=== PATIENT | female | born 1975 | race Asian ===

== ENCOUNTER 2020-12-27 11:28 | Outpatient (REF) | payer OTHER, SELFPAY ==
[2020-12-27 13:54] LABS: Hematocrit 42.3 % (37-47); Hemoglobin 14.1 g/dl (12.0-16.0)
[2020-12-27 14:16] LABS: Alanine Aminotransferase 36 U/L (0-31); Albumin Level 3.9 g/dL (3.5-5.0); Alkaline Phosphatase 80 U/L (39-117); Anion Gap 11 (12-20); Aspartate Amino Transferase 27 U/L (5-31); Bilirubin Total 0.5 mg/dL (0.0-1.0); Blood Urea Nitrogen 12 mg/dL (9-16); Calcium 8.6 mg/dL (8.4-10.2); Carbon Dioxide 26 mmol/L (22-29); Chloride 106 mmol/L (96-108); Cholesterol 234 mg/dL; Estimated Glomerular Filt Rate > 60; Glucose Fasting 87 mg/dL (60-99); HDL Cholesterol 59 mg/dL; LDL Cholesterol Calculated 156 mg/dl; Potassium 4.1 mmol/L (3.3-5.1); Sodium 139 mmol/L (135-145); Triglycerides 98 mg/dL
== END 2020-12-27 11:29 | disposition home or self-care (01) ==
LOC: HO.HMGCLDS 11:28
PROVIDERS: PCP Internal Medicine; Visit Provider Internal Medicine
DX: E55.9 Vitamin D deficiency, unspecified (principal); E78.9 Disorder of lipoprotein metabolism, unspecified; Z00.01 Encounter for general adult medical examination with abnormal findings
CPT/HCPCS: 36415; 80053; 80061; 85014; 85018

== ENCOUNTER 2021-03-16 10:02 | Outpatient (REF) | payer OTHER, SELFPAY ==
--- NOTE | ~2021-03-16 | MM_ITS ---
EXAMINATION: MM SCREENING DIGITAL BREAST TOMOSYNTHESIS, BILATERAL CLINICAL INFORMATION: Screening. Asymptomatic. The lifetime risk of breast cancer based on the Tyrer-Cuzick Model is 7.0%. COMPARISON: Mammography: January 12, 2019 and studies dating back to August 01, 2015 TECHNIQUE: Digital breast tomosynthesis is performed in both the craniocaudal and mediolateral oblique views along with computer-aided detection (CAD). Synthesized 2D images are generated from the tomosynthesis. Bilateral exaggerated craniocaudal views performed. FINDINGS: The breasts are extremely dense, which lowers the sensitivity of mammography (ACR BI-RADS breast composition Category d). There are no significant masses, abnormal calcifications, or other abnormalities. MM/MM tomosynthesis screening BI IMPRESSION: There are no significant changes from prior study. ASSESSMENT: BI-RADS 1: Negative RECOMMENDATION: Routine annual mammography screening. This patient's information was entered into a reminder system with a target due date for their next mammogram.
== END 2021-03-16 10:03 | disposition home or self-care (01) ==
LOC: HO.MAMMO 10:02
PROVIDERS: Visit Provider Internal Medicine
DX: Z12.31 Encounter for screening mammogram for malignant neoplasm of breast (principal)
CPT/HCPCS: 77063; 77067

== ENCOUNTER 2022-07-04 11:10 | Outpatient (REF) | payer OTHER, SELFPAY ==
--- NOTE | ~2022-07-04 | MM_ITS ---
EXAMINATION: MM SCREENING DIGITAL BREAST TOMOSYNTHESIS, BILATERAL CLINICAL INFORMATION: Screening. Asymptomatic. The lifetime risk of breast cancer based on the Tyrer-Cuzick Model is 6%. COMPARISON: Mammography: March 16, 2021 and studies dating back to April 16, 2016 TECHNIQUE: Digital breast tomosynthesis is performed in both the craniocaudal and mediolateral oblique views along with computer-aided detection (CAD). Synthesized 2D images are generated from the tomosynthesis. FINDINGS: The breasts are extremely dense, which lowers the sensitivity of mammography (ACR BI-RADS breast composition Category d). There are no new significant masses, abnormal calcifications, or other abnormalities. MM/MM tomosynthesis screening BI IMPRESSION: No significant changes from prior exam. ASSESSMENT: BI-RADS 1: Negative RECOMMENDATION: Routine annual mammography screening. This patient's information was entered into a reminder system with a target due date for their next mammogram.
== END 2022-07-04 11:11 | disposition home or self-care (01) ==
LOC: HO.MAMMO 11:10
PROVIDERS: Visit Provider Internal Medicine
DX: Z12.31 Encounter for screening mammogram for malignant neoplasm of breast (principal)
CPT/HCPCS: 77063; 77067

== ENCOUNTER 2022-09-12 10:31 | Outpatient (REF) | payer OTHER, SELFPAY ==
[2022-09-13 09:28] LABS: HPV mRNA E6/E7 rflx Not Detected (Not Detected)
== END 2022-09-12 10:32 | disposition home or self-care (01) ==
LOC: HO.LNP 10:31
PROVIDERS: PCP Internal Medicine; Visit Provider Advanced Practice Midwife
DX: Z01.419 Encounter for gynecological examination (general) (routine) without abnormal findings (principal); Z11.51 Encounter for screening for human papillomavirus (HPV); Z97.5 Presence of (intrauterine) contraceptive device
CPT/HCPCS: 87624; 88142

== ENCOUNTER 2022-09-12 12:23 | Outpatient (REF) | payer OTHER, SELFPAY ==
[2022-09-12 13:50] LABS: MANUAL DIFF FLAG NO
[2022-09-12 13:57] LABS: Basophils Absolute Auto 0.1 X10*3/uL (0.0-0.2); Basophils Percent Auto 1.2 % (0-2); Eosinophils Absolute Auto 0.1 X10*3/uL (0.0-0.4); Eosinophils Percent Auto 1.6 % (0-4); Hematocrit 44.8 % (37.0-47.0); Hemoglobin 14.8 g/dl (12.0-16.0); Imm Gran Abs Auto 0.01 X10*3/uL (0.00-0.03); Imm Gran Pct Auto 0.2 % (0.0-0.4); Lymphocytes Absolute Auto 1.9 X10*3/uL (1.2-4.9); Lymphocytes Percent Auto 38.1 % (20-40); Mean Corpuscular Hemoglobin 26.7 pg (27.0-33.0); Mean Corpuscular Volume 80.9 fL (80.0-98.0); Mean Platelet Volume 11.4 fL (9.4-12.3); Monocytes Absolute Auto 0.3 X10*3/uL (0.1-1.2); Monocytes Percent Auto 6.1 % (2-11); Neutrophils Absolute Auto 2.7 x10*3/uL (2.0-8.3); Neutrophils Percent Auto 52.8 % (45-73); Platelet Count 190 X10*3/uL (160-400); Red Blood Count 5.54 X10*6/uL (4.20-5.50); Red Cell Distribution Width 12.9 % (11.0-16.0); White Blood Count 5.1 X10*3/uL (4.8-10.8)
[2022-09-12 15:19] LABS: Alanine Aminotransferase 45 U/L (0-31); Albumin Level 4.4 g/dL (3.5-5.0); Alkaline Phosphatase 94 U/L (39-117); Anion Gap 11 (12-20); Aspartate Amino Transferase 24 U/L (5-31); Bilirubin Total 0.7 mg/dL (0.0-1.0); Blood Urea Nitrogen 13 mg/dL (9-16); Calcium 9.6 mg/dL (8.4-10.2); Carbon Dioxide 28 mmol/L (22-29); Chloride 106 mmol/L (96-108); Cholesterol 217 mg/dL; Estimated Glomerular Filt Rate > 60; Glucose Fasting 86 mg/dL (60-99); HDL Cholesterol 64 mg/dL; LDL Cholesterol Calculated 130 mg/dl; Potassium 4.3 mmol/L (3.3-5.1); Sodium 141 mmol/L (135-145); TSH reflex Free T4 2.83 uIU/mL (0.32-4.0); Total Protein 7.4 g/dL (6.5-8.0); Triglycerides 117 mg/dL
== END 2022-09-12 12:24 | disposition home or self-care (01) ==
LOC: HO.HMGCLDS 12:23
PROVIDERS: PCP Internal Medicine; Visit Provider Internal Medicine
DX: Z00.01 Encounter for general adult medical examination with abnormal findings (principal); E78.9 Disorder of lipoprotein metabolism, unspecified; E07.89 Other specified disorders of thyroid
CPT/HCPCS: 36415; 80053; 80061; 84443; 85025

== ENCOUNTER 2023-06-28 08:18 | Outpatient (REF) | payer OTHER, SELFPAY ==
--- NOTE | ~2023-06-28 | XR_ITS ---
EXAMINATION: XR KNEE, RIGHT CLINICAL INFORMATION: Right knee pain COMPARISON: None available. TECHNIQUE: Four views of the right knee. FINDINGS: There is no evidence of acute fracture or dislocation of the right knee. The right knee joint spaces are maintained. There is minimal marginal spurring seen involving the patellofemoral joint and medial joint space compartment. No significant effusion is appreciated. XR/XR knee RT 4V IMPRESSION: Mild degenerative change of the right knee patellofemoral joint and medial joint space compartment.
[2023-06-28 13:09] LABS: Alanine Aminotransferase 34 U/L (0-31); Alkaline Phosphatase 91 U/L (39-117); Aspartate Amino Transferase 21 U/L (5-31); Bilirubin Direct 0.1 mg/dL (0.0-0.5); Bilirubin Total 0.6 mg/dL (0.0-1.0); Cholesterol 263 mg/dL (<200); HDL Cholesterol 65 mg/dL (>40); LDL Cholesterol Calculated 163 mg/dL (<100); Total Protein 7.3 g/dL (6.5-8.0); Triglycerides 176 mg/dL (<150)
== END 2023-06-28 08:19 | disposition home or self-care (01) ==
LOC: HO.HMGCLDS 08:18
PROVIDERS: PCP Internal Medicine; Visit Provider Internal Medicine
DX: M25.561 Pain in right knee (principal); E78.9 Disorder of lipoprotein metabolism, unspecified
CPT/HCPCS: 36415; 73564; 80061; 80076

== ENCOUNTER → 2023-07-30 12:15 | Outpatient (BNV) | payer OTHER, SELFPAY | PROVIDERS: PCP Internal Medicine; Visit Provider Radiology Diagnostic Radiology | DX: Z12.31 Encounter for screening mammogram for malignant neoplasm of breast (principal) | CPT/HCPCS: 77063; 77067 ==

== ENCOUNTER 2023-07-30 12:20 | Outpatient (REF) | payer OTHER, SELFPAY | END 2023-07-30 12:21 | disposition home or self-care (01) | LOC: HO.MAMMO 12:20 | PROVIDERS: PCP Internal Medicine; Visit Provider Internal Medicine | DX: Z12.31 Encounter for screening mammogram for malignant neoplasm of breast (principal) | CPT/HCPCS: 77063; 77067 ==

== ENCOUNTER 2023-09-24 11:01 | Outpatient (AMB) | payer OTHER, SELFPAY ==
[2023-09-24 11:02] VITALS: BP 124/70; BMI 21.8
--- NOTE | 2023-09-24 11:02 | MHC.OFFVIS ---
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 It was inserted per the records about 2016. She is happy with it and not getting her. She is considering have it removed removed sometime after January. She is not very sexually active anymore because her is on medications which affect his ability to have sex so she is not as worried art all about anymore. She does not want to have it removed before January because she will be having her arm monthly fast in December and if she gets her. She cannot participate in Ramadan with everyone else. She is wondering about when menopause happens her mother she thinks went through menopause around age 46 of 46 and she thinks her older sister went through menopause at age 38. She does get hot flashes sometimes. She believes she had her mammogram just a couple of months ago and everything was fine and everything is fine in her health in general too. [facility] Medical History Vitamin D deficiency Lipid disorder Surgical History History of tooth extraction Family History Father Asthma Mother HTN (hypertension) Sister Mental health disorder Social History Housing: House Alcohol intake: never Patient Tobacco Use Status: Never used Tobacco e-Cigarette/Vaping Use: Never Used Second Hand Smoke Exposure: No Current occupational status: unemployed Current occupational exposures/hazards: No Cognitive needs: No Hearing needs: No Vision needs: No Female Reproductive History Menstrual Age of Menarche: 14 control method: progestin IUCD Total pregnancies: 3 Full term: 3 Number of Living Children: 3 Date of last pap smear: 09/12/22 (negative) Date of Mammogram: 07/30/23 Physical Exam Vital Signs: Last Vital Signs BP 124/70 09/24/23 11:02 BMI result Body Mass Index 21.8 Const General: healthy appearing, comfortable, no acute distress, well developed and alert Nutritional Appearance: average body habitus Orientation/consciousness: patient oriented x3 Limitations: no limitations HEENT Head: Yes normocephalic Neck Neck: Yes normal visual inspection Chest Chest palpation & inspection: normal inspection of the chest Breast/axilla inspection: normal inspection of the breasts and normal inspection of the axillae Breast/axilla palpation: normal palpation of the breasts and normal palpation of the axillae Resp Effort & Inspection: normal respiratory effort GI Inspection: Yes normal to inspection, No Abdominal wall edema and No distended Palpation (GI): Soft to palpation and nontender Other: External speculum exam within normal limits vagina pink moist cervix multiparous with Mirena strings visible. Cervix mobile nontender uterus midposition mobile nontender good tone with Kegel. Bharati menopausal changes evident General: Yes bladder normal to palpation External Female Exam: normal external appearance and normal appearance of the urethra Speculum Exam - Vagina: normal appearance of the vagina, normal palpation and normal vaginal discharge Speculum Exam - Cervix: normal appearance of the cervix, normal palpation and nontender Bimanual exam- vagina & uterus: normal bimanual exam, normal palpation, uterine size normal, bladder normal to palpation, consistency normal, normal palpation, uterine mobility normal, uterine shape normal, No Cervical tenderness present, non-tender and no cervical motion tenderness Bimanual Exam- Adnexa, other: normal adnexae, no masses, normal and No adnexal tenderness Neuro General: patient oriented x3 Assessment & Plan Assessment & Plan (1) Presence of 52 mg levonorgestrel-releasing intrauterine device (IUD): Code(s): Z97.5 - Presence of (intrauterine) contraceptive device (2) Encounter for routine gynecological examination: Code(s): Z01.419 - Encounter for gynecological examination (general) (routine) without abnormal findings (3) Cervical cancer screening: Comment: Previous Pap negative in 2017; Pap done 09/12/2022= neg, neg HPV. Code(s): Z12.4 - Encounter for screening for malignant neoplasm of cervix (4) Perimenopause: Code(s): N95.1 - Menopausal and female climacteric states Plan -----Discussed in this visit the following: healthy balanced diet, regular and consistent exercise, getting recommended health screens, doing the best she can for her particular health concerns, kegel exercises, pap smear screening and followup recommendations, mammography screening and SBE, normal changes in cycles in her life stage--- .---Discussed normal changes that happen premenapausally, perimenapausally, and postmenopausally, and ways to handle them. Discussed the normal variation, and the range of experiences that women experience. Discussed nutrition, health, need for exercise, both weight-bearing and aerobic. Also discussed the normal changes that happen with vaginal mucosal thinning and sensitivity, and simple more natural ways of handling these challenges. Reviewed the changing length of time that the Mirena can be left in and it can be left in for up to 8 years currently if it is not causing her any difficulty at all and if she is happy with the amenorrhea side effect of it. It is up to her when she would choose to have it removed but I did review the risk of non intended at her age and there is no way to really guarantee when she is through menopause completely while having the Mirena in. She is feeling less worried about it. RTC for next annual or Mirena removal whenever she chooses. Definitely did reminder that condoms can be helpful tool if there is any doubt whatsoever Coding Level of Care Code Est Pt Prev Care 40-64y(42160) Diagnoses Presence of 52 mg levonorgestrel-releasing intrauterine device (IUD) Z97.5 Encounter for routine gynecological examination Z01.419 Cervical cancer screening Z12.4 Perimenopause N95.1
== END 2023-09-24 12:07 | disposition home or self-care (01) ==
LOC: HO.HWSM 11:01
PROVIDERS: PCP Internal Medicine; Visit Provider Advanced Practice Midwife
DX: Z01.419 Encounter for gynecological examination (general) (routine) without abnormal findings (principal); N95.1 Menopausal and female climacteric states; Z97.5 Presence of (intrauterine) contraceptive device
CPT/HCPCS: 99396

== ENCOUNTER → 2023-09-24 11:01 | Outpatient (BNVA) | payer OTHER, SELFPAY | PROVIDERS: PCP Internal Medicine; Visit Provider Advanced Practice Midwife | DX: Z01.419 Encounter for gynecological examination (general) (routine) without abnormal findings (principal); Z12.4 Encounter for screening for malignant neoplasm of cervix; N95.1 Menopausal and female climacteric states; Z97.5 Presence of (intrauterine) contraceptive device | CPT/HCPCS: 99396 ==

== ENCOUNTER 2024-01-29 14:02 | Outpatient (AMB) | payer OTHER, SELFPAY ==
[2024-01-29 14:06] VITALS: BP 110/64; PULSE 91; O2SAT 97; BMI 21.1
--- NOTE | 2024-01-29 14:06 | MHC.PC.OV ---
Vital Signs 01/29/24 14:06 Height 5 ft 4 in Weight 123 lb 2 oz BMI 21.1 BP 110/64 Blood Pressure Location Rt brachial Position Sitting Pulse 91 Pulse Source Pulse Oximeter Pulse Oximetry (%) 97 Oxygen Delivery Method Room Air Intake Visit Reasons: Overdue F/u~ Allergies No Known Drug Allergies Allergy (Unknown, Verified 01/29/24 14:07) unknown Medication List - Last Reconciled 01/29/24 by Tk Springer MD cholecalciferol (vitamin D3) 50 mcg PO DAILY 90 days levonorgestrel (Mirena) intrauterine simvastatin 10 mg PO DAILY 90 days Tobacco use date assessed: 01/29/24 Dental Screening Dental Screen Date: 01/29/24 Did you have a dental visit in the last 12 months?: Yes Did you have a dental problem in the last 6 months where you did not have access to dental care?: No Was dental information given to patient?: Patient has dentist HPI Overdue F/u~ HPI Details Patient is a 48-year-old female Patient had COVID infection last month followed by sinus congestion and thick nasal discharge She said that she is having irritated cough which starts suddenly There is no fever no chills no shortness a breath no chest pain On examination her chest is clear I am treating her with azithromycin and Tessalon Perles Patient was also advised to push fluids and add vitamin-C to her diet Last time seen was December of last year Her labs done in June of last year when her LDL came back at 163 At that time patient stopped taking her simvastatin 10 mg She is now taking medication regularly I have placed order for labs again Patient is to do them fasting Meanwhile continue vitamin-D supplement as well She is due for physical exam appointment we will book that [facility] Medical History Vitamin D deficiency Lipid disorder Surgical History History of tooth extraction Family History Father Asthma Mother HTN (hypertension) Sister Mental health disorder Social History Housing: House Alcohol intake: never Patient Tobacco Use Status: Never used Tobacco e-Cigarette/Vaping Use: Never Used Second Hand Smoke Exposure: No Current occupational status: unemployed Current occupational exposures/hazards: No Cognitive needs: No Hearing needs: No Vision needs: No Female Reproductive History Menstrual Age of Menarche: 14 Questionnaire Thrive Questionnaire Date Thrive assessed: 06/29/22 YVONNE-7 AMB Questionnaire YVONNE-7 Date YVONNE - 7 assessed: 06/29/22 Source: Developed by Drs. Maurice Hwang, Lurdes Olivera, Enoch Perry and colleagues, with an educational chico from [employer]. Review of Systems Const Denies chills and Denies fever(s) ENT Denies epistaxis Card Denies chest pain Resp Denies hemoptysis GI Denies diarrhea and Denies nausea Skin/Breast Denies rash Neuro Reports no additional complaints Psych Reports no additional complaints Endo Reports no additional complaints Physical exam (Primary Care) Tobacco/Smoking Status: Tobacco use Status Tobacco use date assessed 12/25/22 12/25/22 08:52 Patient Tobacco Use Status Never used Tobacco 12/25/22 08:52 e-Cigarette/Vaping Use Never Used 12/25/22 08:52 Thrive Assessment: Date of Thrive Assessment Date Thrive assessed 06/29/22 12/25/22 08:52 Const General: cooperative, comfortable and no acute distress Orientation/consciousness: patient oriented x3 HENMT Head: Yes normocephalic Eyes General: appearance normal, both eyes and all related structures Neck Neck: Yes supple Resp Effort & Inspection: normal respiratory effort, no cough and no stridor Cardio Rhythm: regular rhythm Heart sounds: S1 normal heart sound present and S2 normal heart sound present Skin General skin exam: turgor normal Neuro General: patient oriented x3, tone normal and moves all extremities Extrem Right lower extremity: no edema Left lower extremity: no edema Assessment and Plan Assessment & Plan (1) Lipid disorder: Code(s): E78.9 - Disorder of lipoprotein metabolism, unspecified (2) Vitamin D deficiency: Code(s): E55.9 - Vitamin D deficiency, unspecified (3) Acute sinusitis: Code(s): J01.90 - Acute sinusitis, unspecified Qualifiers: Sinusitis location: maxillary Recurrence: non-recurrent Qualified Code(s): J01.00 - Acute maxillary sinusitis, unspecified Plan Patient is a 48-year-old female Patient had COVID infection last month followed by sinus congestion and thick nasal discharge She said that she is having irritated cough which starts suddenly There is no fever no chills no shortness a breath no chest pain On examination her chest is clear I am treating her with azithromycin and Tessalon Perles Patient was also advised to push fluids and add vitamin-C to her diet Last time seen was December of last year Her labs done in June of last year when her LDL came back at 163 At that time patient stopped taking her simvastatin 10 mg She is now taking medication regularly I have placed order for labs again Patient is to do them fasting Meanwhile continue vitamin-D supplement as well She is due for physical exam appointment we will book that Orders: Orders Comprehensive [place]. Panel Fast Today E55.9 - Vitamin D deficiency, unspecified, E78.9 - Disorder of lipoprotein metabolism, unspecified Vitamin D 25-OH (D2 and D3) Today E55.9 - Vitamin D deficiency, unspecified Complete Blood Count Auto Diff Today E55.9 - Vitamin D deficiency, unspecified, E78.9 - Disorder of lipoprotein metabolism, unspecified Lipid Panel Today E55.9 - Vitamin D deficiency, unspecified, E78.9 - Disorder of lipoprotein metabolism, unspecified Medications: New azithromycin Take 2 tablets today then 1 daily 250 mg PO ONCE 5 days 6 tabs 0RF J06.9 - Acute upper respiratory infection, unspecified benzonatate 200 mg PO BID 10 days PRN 20 caps 0RF cough Coding Level of Care Code Est Pt Level 3 (39652) Diagnoses Lipid disorder E78.9 Vitamin D deficiency E55.9 Acute non-recurrent maxillary sinusitis J01.00 Sinusitis location: maxillary Recurrence: non-recurrent
== END 2024-01-29 14:55 | disposition home or self-care (01) ==
PROVIDERS: PCP Internal Medicine; Visit Provider Internal Medicine
DX: E78.9 Disorder of lipoprotein metabolism, unspecified (principal); E55.9 Vitamin D deficiency, unspecified; J01.00 Acute maxillary sinusitis, unspecified
CPT/HCPCS: 99213

== ENCOUNTER 2024-02-25 06:10 | Outpatient (REF) | payer OTHER, SELFPAY ==
[2024-02-25 10:31] LABS: MANUAL DIFF FLAG NO
[2024-02-25 10:49] LABS: Basophils Absolute Auto 0.1 X10*3/uL (0.0-0.2); Basophils Percent Auto 0.9 % (0-2); Eosinophils Absolute Auto 0.1 X10*3/uL (0.0-0.4); Eosinophils Percent Auto 2.1 % (0-4); Hematocrit 43.2 % (37.0-47.0); Hemoglobin 14.2 g/dl (12.0-16.0); Imm Gran Abs Auto 0.01 X10*3/uL (0.00-0.03); Imm Gran Pct Auto 0.2 % (0.0-0.4); Lymphocytes Absolute Auto 2.5 X10*3/uL (1.2-4.9); Lymphocytes Percent Auto 46.2 % (20-40); Mean Corpuscular HGB Conc 32.9 g/dl (31.0-35.0); Mean Corpuscular Hemoglobin 26.8 pg (27.0-33.0); Mean Corpuscular Volume 81.5 fL (80.0-98.0); Mean Platelet Volume 11.4 fL (9.4-12.3); Monocytes Absolute Auto 0.4 X10*3/uL (0.1-1.2); Monocytes Percent Auto 6.6 % (2-11); Neutrophils Absolute Auto 2.4 x10*3/uL (2.0-8.3); Platelet Count 183 X10*3/uL (160-400); Red Cell Distribution Width 13.3 % (11.0-16.0); White Blood Count 5.3 X10*3/uL (4.8-10.8)
[2024-02-25 11:42] LABS: Alanine Aminotransferase 43 U/L (0-31); Albumin Level 3.9 g/dL (3.5-5.0); Alkaline Phosphatase 80 U/L (39-117); Anion Gap 10 (12-20); Aspartate Amino Transferase 26 U/L (5-31); Bilirubin Total 0.5 mg/dL (0.0-1.0); Blood Urea Nitrogen 13 mg/dL (9-16); Calcium 9.4 mg/dL (8.4-10.2); Carbon Dioxide 27 mmol/L (22-29); Chloride 109 mmol/L (96-108); Cholesterol 175 mg/dL (<200); Estimated Glomerular Filt Rate > 60; Glucose Fasting 91 mg/dL (60-99); HDL Cholesterol 64 mg/dL (>40); LDL Cholesterol Calculated 94 mg/dL (<100); Potassium 4.3 mmol/L (3.3-5.1); Sodium 142 mmol/L (135-145); Total Protein 7.1 g/dL (6.5-8.0); Triglycerides 89 mg/dL (<150)
[2024-02-29 14:58] LABS: Vitamin D 25-OH, D2 <4 ng/mL; Vitamin D 25-OH, D3 19 ng/mL; Vitamin D 25-OH, Total 19 ng/mL (30-100)
== END 2024-02-25 06:11 | disposition home or self-care (01) ==
LOC: HO.HMGCLDS 06:10
PROVIDERS: PCP Internal Medicine; Visit Provider Internal Medicine
DX: E78.9 Disorder of lipoprotein metabolism, unspecified (principal); E55.9 Vitamin D deficiency, unspecified
CPT/HCPCS: 36415; 80053; 80061; 82306; 85025

== ENCOUNTER 2024-02-26 10:21 | Outpatient (AMB) | payer OTHER, SELFPAY ==
[2024-02-26 10:22] VITALS: BP 100/60; PULSE 97; O2SAT 92; BMI 21.3
--- NOTE | 2024-02-26 10:22 | A.OFFPC_ITS ---
Vital Signs 3 02/26/24 10:22 Height 5 ft 4 in Weight 124 lb 4 oz BMI 21.3 BP 100/60 Blood Pressure Location Rt brachial Position Sitting Pulse 97 Pulse Source Pulse Oximeter Pulse Oximetry (%) 92 Oxygen Delivery Method Room Air Intake Visit Reasons: PE per [place]- NEEDS PHQ9 + THRIVE Allergies No Known Drug Allergies Allergy (Unknown, Verified 02/26/24 10:22) unknown Medication List - Last Reconciled 02/26/24 by Tk Springer MD cholecalciferol (vitamin D3) 50 mcg PO DAILY 90 days levonorgestrel (Mirena) intrauterine simvastatin 10 mg PO DAILY 90 days Tobacco use date assessed: 02/26/24 Dental Screening Dental Screen Date: 02/26/24 Did you have a dental visit in the last 12 months?: Yes Did you have a dental problem in the last 6 months where you did not have access to dental care?: No Was dental information given to patient?: Patient has dentist HPI PE per [place]- NEEDS PHQ9 + THRIVE 2 HPI0 Details Patient is a 48-year-old female came in today for physical exam Patient is complaining of feeling left-sided swelling upper chest, on examination it is medial head of clavicle I have ordered x-ray for her to further evaluate, patient says that it has been there for past 1 year She is also complaining of feeling discomfort left side of chest off and on which feels like a gas pain. EKG done today shows normal sinus rhythm 60 8 beats per minute no acute findings. Patient does have a history of high cholesterol which is controlled with medication She had labs done recently reviewed with the patient She is complaining of feeling numbness in her both big toes, I wanted to do EMG nerve conduction study which patient declined I have sent B complex tablet she is to start taking that daily. Mammogram was July of last year OBGYN visit was September of this year She also declined to do colonoscopy. I have sent omeprazole 20 mg tablets patient is to start taking that once at night. We will book a telemedicine visit in 3 weeks to follow-up on that Follow-up 6 months labs are needed before visit Physical exam 1 year [facility] Medical History Vitamin D deficiency Lipid disorder Surgical History History of tooth extraction Family History Father Asthma Mother HTN (hypertension) Sister Mental health disorder Social History Housing: House Alcohol intake: never Patient Tobacco Use Status: Never used Tobacco e-Cigarette/Vaping Use: Never Used Second Hand Smoke Exposure: No Current occupational status: unemployed Current occupational exposures/hazards: No Cognitive needs: No Hearing needs: No Vision needs: No Female Reproductive History Menstrual Age of Menarche: 14 Questionnaire PHQ-9 Over the last 2 weeks, how often have you been bothered by any of the following problems? 1. Little interest or pleasure in doing things: not at all 2. Feeling down, depressed, or hopeless: not at all 3. Trouble falling or staying asleep, or sleeping too much: not at all 4. Feeling tired or having little energy: several days 5. Poor appetite or overeating: not at all 6. Feeling bad about yourself - or that you are a failure or have let yourself or your family down: not at all 7. Trouble concentrating on things, such as reading the newspaper or watching television: not at all 8. Moving or speaking so slowly that other people could have noticed. Or the opposite - being so fidgety or restless that you have been moving around a lot more than usual: not at all 9. Thoughts that you would be better off or of hurting yourself in some way: not at all Total score: 1 Depression Screening Interpretation: Negative Depression Screening Done: Yes 97639 - PHQ-9 Billing: Yes Source: Developed by Drs. Maurice Hwang, Lurdes Olivera, Enoch Perry and colleagues, with an educational chico from [employer]. Thrive Questionnaire Date Thrive assessed: 02/26/24 I am a: Patient What is your living situation today?: I have a steady place to live Within the past 12 months, did the food you bought not last and you didn't have the money to get more?: Never true Within the past 12 months, did you worry whether your food would run out before you got money to buy more?: Never true Do you have trouble paying for medicines?: No Do you have trouble getting transportation to medical appointments?: No Do you have trouble paying your heating and electricity bill?: No Do you have trouble taking care of your child, family member or friend?: No Do you have trouble with day-to-day activities such as bathing, preparing meals, shopping, managing finances, etc.?: No Are you currently unemployed and looking for a job?: No Are you interested in more education?: No Please select the resources that you would like help with: None Currently or been in a relationship where the following occur: no concerns reported THRIVE Score: 0 AUDIT C Alcohol Use Questionnaire (AUDIT-C) 1. How often do you have a drink containing alcohol?: Never 3. How often do you have six or more drinks on one occasion?: Never Total Score: 0 Score Reviewed/Action Taken: Yes YVONNE-7 AMB Questionnaire YVONNE-7 Date YVONNE - 7 assessed: 02/26/24 Feeling nervous, anxious, or on edge: 0 = Not at all Not being able to stop or control worryin = Not at all Worrying too much about different things: 0 = Not at all Trouble relaxin = Not at all Being so restless that it is hard to sit still: 0 = Not at all Becoming easily annoyed or irritable: 1 = Several days Feeling afraid as if something awful might happen: 0 = Not at all Total YVONNE-7 score (0-4 normal; 5-9 mild; 10-14 moderate; 15-21 severe): 1 Source: Developed by Drs. Maurice Hwang, Lurdes Olivera, Enoch Perry and colleagues, with an educational chico from [employer]. YVONNE-7 Assessment Billing YVONNE-7 Assessment Tool: YVONNE-7 Assessment 76842 Review of Systems Const Denies chills, Denies fever(s) and Denies headache(s) Eyes Denies blurry vision ENT Denies headache(s), Denies nasal discharge, Denies nasal obstruction, Denies odynophagia and Denies sinus pain Resp Denies cough and Denies hemoptysis GI Denies diarrhea, Denies odynophagia, Denies vomiting and Denies hematemesis Reports as per HPI Musc Denies abnormal gait Skin/Breast Reports as per HPI Neuro Denies Neuro-related abnormal movements, Denies Abnormal speech present, Denies abnormal gait and Denies headache(s) Psych Denies mood swings and Denies paranoia Endo Reports as per HPI Danny/Lymph Reports as per HPI Aller/Immun Reports as per HPI Physical exam (Primary Care) Vital Signs: Last Vital Signs Pulse 97 02/26/24 10:22 BP 100/60 02/26/24 10:22 Pulse Ox 92 02/26/24 10:22 Oxygen Delivery Method Room Air 02/26/24 10:22 BMI result Body Mass Index 21.3 Tobacco/Smoking Status: Tobacco use Status Tobacco use date assessed 02/26/24 02/26/24 10:28 Patient Tobacco Use Status Never used Tobacco 02/26/24 10:28 e-Cigarette/Vaping Use Never Used 02/26/24 10:28 PHQ-9: PHQ-9 Score PHQ-9: Total score 1 02/26/24 11:48 Depression Screening Interpretation: Negative Thrive Assessment: Date of Thrive Assessment Date Thrive assessed 02/26/24 02/26/24 10:59 Currently or been in a relationship where the following occur: no concerns reported Const General: cooperative, comfortable and no acute distress Orientation/consciousness: patient oriented x3 HENMT Head: Yes normocephalic and Yes atraumatic Eyes General: appearance normal, both eyes and all related structures Pupils: Equal, round and reactive pupils present EOM: EOMs intact bilaterally Neck Neck: Yes supple and No lymphadenopathy Thyroid: Thyroid normal Lymphatic: no lymphadenopathy noted Neck images: 2 1. More prominent than right side Resp Effort & Inspection: normal respiratory effort and able to speak in complete sentences Auscultation: clear to auscultation bilaterally Cardio Heart sounds: S1 normal heart sound present and S2 normal heart sound present GI Palpation (GI): Soft to palpation and nontender Auscultation: normal bowel sounds General: Yes no CVA tenderness Back/Spine/Pelvis Back: no CVA tenderness Skin General skin exam: elasticity normal and turgor normal Neuro General: patient oriented x3 and gait normal Cranial nerves: Yes Equal, round and reactive pupils present Speech: No Abnormal speech present Coordination: tandem gait normal and Romberg test negative Extrem General: Yes normal exam except as noted and No edema Office Procedures EKG [id number], Complete Assessment and Plan Assessment & Plan (1) Encounter for general adult medical examination with abnormal findings: Code(s): Z00.01 - Encounter for general adult medical examination with abnormal findings (2) Chest pain: Code(s): R07.9 - Chest pain, unspecified Qualifiers: Chest pain type: unspecified Qualified Code(s): R07.9 - Chest pain, unspecified (3) Clavicle pain: Code(s): M89.8X1 - Other specified disorders of bone, shoulder (4) Lipid disorder: Code(s): E78.9 - Disorder of lipoprotein metabolism, unspecified (5) Palpable thyroid: Code(s): E07.89 - Other specified disorders of thyroid (6) Paresthesia of both feet: Code(s): R20.2 - Paresthesia of skin Plan Patient is a 48-year-old female came in today for physical exam Patient is complaining of feeling left-sided swelling upper chest, on examination it is medial head of clavicle I have ordered x-ray for her to further evaluate, patient says that it has been there for past 1 year She is also complaining of feeling discomfort left side of chest off and on which feels like a gas pain. EKG done today shows normal sinus rhythm 60 8 beats per minute no acute findings. Patient does have a history of high cholesterol which is controlled with medication She had labs done recently reviewed with the patient She is complaining of feeling numbness in her both big toes, I wanted to do EMG nerve conduction study which patient declined I have sent B complex tablet she is to start taking that daily. Continued to have palpable thyroid, ultrasound was done to evaluate in the past TSH level is within normal limit Mammogram was July of last year OBGYN visit was September of this year She also declined to do colonoscopy. I have sent omeprazole 20 mg tablets patient is to start taking that once at night. We will book a telemedicine visit in 3 weeks to follow-up on that Follow-up 6 months labs are needed before visit Physical exam 1 year Orders: Orders 2 XR clavicle LT Today M89.8X1 - Other specified disorders of bone, shoulder AMB EKG-In Office Today R07.9 - Chest pain, unspecified Medications: New 2 omeprazole 20 mg PO DAILY 90 caps 1RF 90 days vit B complex 100 combo no.2 ER (Balanced B-100 Complex) 1 tab PO .qd 90 tabs 3RF 90 days Refilled 2 simvastatin 10 mg PO DAILY 90 tabs 0RF 90 days Coding Level of Care Code Est Pt Level 4 (69162) Est Pt Prev Care 40-64y(81238) Diagnoses Encounter for general adult medical examination with abnormal findings Z00.01 Chest pain, unspecified type R07.9 Chest pain type: unspecified Clavicle pain M89.8X1 Lipid disorder E78.9 Palpable thyroid E07.89 Paresthesia of both feet R20.2 CPT Codes EKG - CPT: 89984-[id number], Complete ([id number]) Additional Codes YVONNE-7 Assessment Billing - YVONNE-7 Assessment Tool: YVONNE-7 Assessment [id number] ([id number])
== END 2024-02-26 11:01 | disposition home or self-care (01) ==
PROVIDERS: PCP Internal Medicine; Visit Provider Internal Medicine
DX: Z00.01 Encounter for general adult medical examination with abnormal findings (principal); R07.9 Chest pain, unspecified; M89.8X1 Other specified disorders of bone, shoulder; E78.9 Disorder of lipoprotein metabolism, unspecified; E07.89 Other specified disorders of thyroid; R20.2 Paresthesia of skin
CPT/HCPCS: 93000; 99214; 99396

== ENCOUNTER 2024-02-26 11:03 | Outpatient (REF) | payer OTHER, SELFPAY ==
--- NOTE | ~2024-02-26 | XR_ITS ---
EXAMINATION: XR CLAVICLE, LEFT CLINICAL INFORMATION: Swelling COMPARISON: None available. TECHNIQUE: Two views of the left clavicle. FINDINGS: The clavicle is intact. The bones and soft tissues are normal. No fracture. Acromioclavicular joint alignment is anatomic. XR/XR clavicle LT IMPRESSION: Normal left clavicle.
== END 2024-02-26 11:04 | disposition home or self-care (01) ==
LOC: HO.HMGCX 11:03
PROVIDERS: PCP Internal Medicine; Visit Provider Internal Medicine
DX: M89.8X1 Other specified disorders of bone, shoulder (principal)
CPT/HCPCS: 73000

== ENCOUNTER 2024-03-26 08:14 | Outpatient (AMB) | payer OTHER, SELFPAY ==
--- NOTE | 2024-03-26 08:19 | A.OFFPC_ITS ---
Intake Visit Reasons: 4 week follow up Allergies No Known Drug Allergies Allergy (Unknown, Verified 03/26/24 08:19) unknown Medication List - Last Reconciled 03/26/24 by Tk Springer MD cholecalciferol (vitamin D3) 50 mcg PO DAILY 90 days levonorgestrel (Mirena) intrauterine omeprazole 20 mg PO DAILY 90 days simvastatin 10 mg PO DAILY 90 days vit B complex 100 combo no.2 ER (Balanced B-100 Complex) 1 tab PO .qd 90 days Tobacco use date assessed: 03/26/24 Dental Screening Dental Screen Date: 03/26/24 Did you have a dental visit in the last 12 months?: Yes Did you have a dental problem in the last 6 months where you did not have access to dental care?: No Was dental information given to patient?: Patient has dentist HPI 4 week follow up HPI Details Telemed visit to jovana from last visit Labs shows well controlled lipids continue med Vit D is still low, pt is taking supplement lab order placed to be done before next visit in 6 M Neck pain continue, flexeril sent for spasm, she may take one at night she was c/o of epigastric LUQ pain last visit EKG was done which didnt show any acute findings Omperpazple was started, she states she is feeling much better X ray of collar bone with WNL PFSH Medical History Vitamin D deficiency Lipid disorder Surgical History History of tooth extraction Family History Father Asthma Mother HTN (hypertension) Sister Mental health disorder Social History Housing: House Alcohol intake: never Patient Tobacco Use Status: Never used Tobacco e-Cigarette/Vaping Use: Never Used Second Hand Smoke Exposure: No Current occupational status: unemployed Current occupational exposures/hazards: No Cognitive needs: No Hearing needs: No Vision needs: No Female Reproductive History Menstrual Age of Menarche: 14 Questionnaire Thrive Questionnaire Date Thrive assessed: 02/26/24 YVONNE-7 AMB Questionnaire YVONNE-7 Date YVONNE - 7 assessed: 02/26/24 Source: Developed by Drs. Maurice Hwang, Lurdes Olivera, Enoch Perry and colleagues, with an educational chico from [employer]. Review of Systems Const Denies chills and Denies fever(s) ENT Denies epistaxis and Denies nasal discharge Card Denies chest pain Resp Denies chest congestion, Denies cough and Denies hemoptysis GI Denies diarrhea and Denies nausea Skin/Breast Denies rash Neuro Reports no additional complaints Psych Reports no additional complaints Endo Reports no additional complaints Physical exam (Primary Care) Tobacco/Smoking Status: Tobacco use Status Tobacco use date assessed 03/26/24 03/26/24 08:20 Patient Tobacco Use Status Never used Tobacco 03/26/24 08:20 e-Cigarette/Vaping Use Never Used 03/26/24 08:20 Thrive Assessment: Date of Thrive Assessment Date Thrive assessed 02/26/24 03/26/24 08:20 Telehealth Telehealth Telehealth Platform: [employer] Location of provider rendering services: practice address Location of patient: address on file Patient Identification confirmed using: Name, : Yes Telehealth method: video (attempted) Patient verbally consented to treatment: Yes Patient verbally consented to billing insurance company: Yes Patient informed of any privacy concerns related to visit: Yes Assessment and Plan Assessment & Plan (1) Lipid disorder: Code(s): E78.9 - Disorder of lipoprotein metabolism, unspecified (2) Vitamin D deficiency: Code(s): E55.9 - Vitamin D deficiency, unspecified (3) Paresthesia of both feet: Code(s): R20.2 - Paresthesia of skin (4) Acid reflux: Code(s): K21.9 - Gastro-esophageal reflux disease without esophagitis Qualifiers: Esophagitis presence: without esophagitis Qualified Code(s): K21.9 - Gastro-esophageal reflux disease without esophagitis (5) Cervicalgia: Code(s): M54.2 - Cervicalgia Plan Telemed visit to jovana from last visit Labs shows well controlled lipids continue med Vit D is still low, pt is taking supplement lab order placed to be done before next visit in 6 M Neck pain continue, flexeril sent for spasm, she may take one at night she was c/o of epigastric LUQ pain last visit EKG was done which didnt show any acute findings Omperpazple was started, she states she is feeling much better X ray of collar bone with WNL proper foot martinez is recommeded for foot pain 30 min spent in care of this patient Orders: Orders Lipid Panel 5 Months E55.9 - Vitamin D deficiency, unspecified, E78.9 - Disorder of lipoprotein metabolism, unspecified, K21.9 - Gastro-esophageal reflux disease without esophagitis, M54.2 - Cervicalgia, R20.2 - Paresthesia of skin Comprehensive [place]. Panel Fast 5 Months E55.9 - Vitamin D deficiency, unspecified, E78.9 - Disorder of lipoprotein metabolism, unspecified, K21.9 - Gastro-esophageal reflux disease without esophagitis, M54.2 - Cervicalgia, R20.2 - Paresthesia of skin Complete Blood Count Auto Diff 5 Months E55.9 - Vitamin D deficiency, unspecified, E78.9 - Disorder of lipoprotein metabolism, unspecified, K21.9 - Gastro-esophageal reflux disease without esophagitis, M54.2 - Cervicalgia, R20.2 - Paresthesia of skin Vitamin D 25-OH (D2 and D3) 5 Months E55.9 - Vitamin D deficiency, unspecified, E78.9 - Disorder of lipoprotein metabolism, unspecified, K21.9 - Gastro- esophageal reflux disease without esophagitis, M54.2 - Cervicalgia, R20.2 - Paresthesia of skin Vitamin B12 5 Months E55.9 - Vitamin D deficiency, unspecified, E78.9 - Disorder of lipoprotein metabolism, unspecified, K21.9 - Gastro-esophageal reflux disease without esophagitis, M54.2 - Cervicalgia, R20.2 - Paresthesia of skin Medications: New cyclobenzaprine 5 mg PO BEDTIME 30 days 30 tabs 0RF Coding Level of Care Code Tele Est Pt Level 4 (59054) Diagnoses Lipid disorder E78.9 Vitamin D deficiency E55.9 Paresthesia of both feet R20.2 Gastroesophageal reflux disease without esophagitis K21.9 Esophagitis presence: without esophagitis Cervicalgia M54.2
== END 2024-03-26 10:39 | disposition home or self-care (01) ==
PROVIDERS: PCP Internal Medicine; Visit Provider Internal Medicine
DX: E78.9 Disorder of lipoprotein metabolism, unspecified (principal); E55.9 Vitamin D deficiency, unspecified; R20.2 Paresthesia of skin; K21.9 Gastro-esophageal reflux disease without esophagitis; M54.2 Cervicalgia
CPT/HCPCS: 99214

== ENCOUNTER 2024-07-31 12:23 | Outpatient (REF) | payer OTHER, SELFPAY ==
--- NOTE | ~2024-07-31 | MM_ITS ---
EXAMINATION: MM SCREENING DIGITAL BREAST TOMOSYNTHESIS, BILATERAL CLINICAL INFORMATION: Screening. Asymptomatic. COMPARISON: Mammography: Comparison is made with available priors TECHNIQUE: Digital breast mammography with tomosynthesis is performed in both the craniocaudal and mediolateral oblique views along with computer-aided detection (CAD). FINDINGS: The breasts are heterogeneously dense, which may obscure small masses (ACR BI-RADS breast composition Category c). There are no significant masses, abnormal calcifications, or other abnormalities. MM/MM tomosynthesis screening BI IMPRESSION: No mammographic evidence of malignancy. ASSESSMENT: BI-RADS BI-RADS 1 - Negative RECOMMENDATION: Routine annual mammography screening. 1 year F/U This examination should not preclude the clinical evaluation of a suspicious palpable abnormality. This patient's information was entered into a reminder system with a target due date for their next mammogram. Electronically signed by: Allison Oliver DO 08/11/2024 10:57 AM ARUNA
== END 2024-07-31 12:24 | disposition home or self-care (01) ==
LOC: HO.MAMMO 12:23
PROVIDERS: PCP Internal Medicine; Visit Provider Internal Medicine
DX: Z12.31 Encounter for screening mammogram for malignant neoplasm of breast (principal)
CPT/HCPCS: 77063; 77067

== ENCOUNTER → 2024-07-31 12:30 | Outpatient (BNV) | payer OTHER, SELFPAY | PROVIDERS: PCP Internal Medicine; Visit Provider Internal Medicine | DX: Z12.31 Encounter for screening mammogram for malignant neoplasm of breast (principal) | CPT/HCPCS: 77063; 77067 ==

== ENCOUNTER 2024-08-24 07:43 | Outpatient (REF) | payer OTHER, SELFPAY ==
[2024-08-24 10:17] LABS: MANUAL DIFF FLAG NO
[2024-08-24 10:32] LABS: Basophils Absolute Auto 0.1 X10*3/uL (0.0-0.2); Basophils Percent Auto 1.2 % (0-2); Eosinophils Absolute Auto 0.1 X10*3/uL (0.0-0.4); Eosinophils Percent Auto 2.2 % (0-4); Hematocrit 42.6 % (37.0-47.0); Hemoglobin 14.2 g/dl (12.0-16.0); Imm Gran Abs Auto 0.01 X10*3/uL (0.00-0.03); Imm Gran Pct Auto 0.2 % (0.0-0.4); Lymphocytes Absolute Auto 2.4 X10*3/uL (1.2-4.9); Lymphocytes Percent Auto 40.6 % (20-40); Mean Corpuscular HGB Conc 33.3 g/dl (31.0-35.0); Mean Corpuscular Hemoglobin 26.9 pg (27.0-33.0); Mean Corpuscular Volume 80.8 fL (80.0-98.0); Mean Platelet Volume 11.3 fL (9.4-12.3); Monocytes Absolute Auto 0.3 X10*3/uL (0.1-1.2); Monocytes Percent Auto 5.4 % (2-11); Neutrophils Absolute Auto 2.9 x10*3/uL (2.0-8.3); Neutrophils Percent Auto 50.4 % (45-73); Platelet Count 192 X10*3/uL (160-400); Red Blood Count 5.27 X10*6/uL (4.20-5.50); Red Cell Distribution Width 12.8 % (11.0-16.0); White Blood Count 5.8 X10*3/uL (4.8-10.8)
[2024-08-24 10:59] LABS: Alanine Aminotransferase 35 U/L (0-31); Alkaline Phosphatase 73 U/L (39-117); Anion Gap 11 (12-20); Aspartate Amino Transferase 25 U/L (5-31); Bilirubin Total 0.5 mg/dL (0.0-1.0); Blood Urea Nitrogen 14 mg/dL (9-16); Calcium 9.2 mg/dL (8.4-10.2); Carbon Dioxide 25 mmol/L (22-29); Chloride 108 mmol/L (96-108); Cholesterol 190 mg/dL (<200); Estimated Glomerular Filt Rate > 60; Glucose Fasting 102 mg/dL (60-99); HDL Cholesterol 66 mg/dL (>40); LDL Cholesterol Calculated 104 mg/dL (<100); Potassium 3.8 mmol/L (3.3-5.1); Sodium 140 mmol/L (135-145); Total Protein 7.3 g/dL (6.5-8.0); Triglycerides 100 mg/dL (<150)
[2024-08-24 11:14] LABS: Vitamin B12 395 pg/mL (200-900)
[2024-08-28 13:09] LABS: Vitamin D 25-OH, D2 <4 ng/mL; Vitamin D 25-OH, D3 28 ng/mL; Vitamin D 25-OH, Total 28 ng/mL (30-100)
== END 2024-08-24 07:44 | disposition home or self-care (01) ==
LOC: HO.HMGCLDS 07:43
PROVIDERS: PCP Internal Medicine; Visit Provider Internal Medicine
DX: E78.9 Disorder of lipoprotein metabolism, unspecified (principal); R20.2 Paresthesia of skin; E55.9 Vitamin D deficiency, unspecified; K21.9 Gastro-esophageal reflux disease without esophagitis; M54.2 Cervicalgia
CPT/HCPCS: 36415; 80053; 80061; 82306; 82607; 85025

== ENCOUNTER 2024-08-25 10:53 | Outpatient (AMB) | payer OTHER, SELFPAY ==
[2024-08-25 10:54] VITALS: BP 112/68; PULSE 97; O2SAT 98; BMI 22.0
--- NOTE | 2024-08-25 10:54 | MHC.PC.OV ---
Vital Signs 08/25/24 10:54 Height 5 ft 4 in Weight 128 lb 2 oz BMI 22.0 BP 112/68 Blood Pressure Location Rt brachial Position Sitting Pulse 97 Pulse Source Pulse Oximeter Pulse Oximetry (%) 98 Oxygen Delivery Method Room Air Intake Visit Reasons: 6 month follow up Allergies No Known Drug Allergies Allergy (Unknown, Verified 08/25/24 10:54) unknown Medication List - Last Reconciled 08/25/24 by Tk Springer MD cholecalciferol (vitamin D3) 50 mcg PO DAILY 90 days cyclobenzaprine 5 mg PO BEDTIME 30 days levonorgestrel (Mirena) intrauterine omeprazole 20 mg PO DAILY 90 days simvastatin 10 mg PO DAILY 90 days vit B complex 100 combo no.2 ER (Balanced B-100 Complex) 1 tab PO .qd 90 days Tobacco use date assessed: 08/25/24 Dental Screening Dental Screen Date: 08/25/24 Did you have a dental visit in the last 12 months?: Yes Did you have a dental problem in the last 6 months where you did not have access to dental care?: No Was dental information given to patient?: Patient has dentist HPI 6 month follow up HPI Details Assessment and Plan 49-year-old female with a history of pre-diabetes, hyperlipidemia, and Vitamin D deficiency presenting with concerns regarding facial dermatitis. And physical exam. During the visit, we addressed her current medication adherence and evaluated her dermatologic symptoms that have recently developed on the right cheek, characterized by itching and dryness. She has a history of rising lipid levels, for which she is currently on simvastatin, and a previously noted Vitamin D deficiency. She is also at risk for diabetes, with her last glucose level at 102 mg/dL. Her cholesterol management is noteworthy, showing improvement in LDL levels compared to the previous year. 1. Hyperlipidemia Continue current management with simvastatin due to improved LDL levels. Reinforce compliance with medication and dietary modifications. 2. Vitamin D Deficiency Patient should maintain a daily intake of Vitamin D supplements. Await pending results to adjust treatment if necessary. 3. Pre-Diabetes Continue monitoring fasting glucose levels. Discussed the continued risk of diabetes, and the importance of maintaining a healthy weight and diet. 4. Facial Dermatitis Prescribed a topical steroid to manage symptoms on the right cheek. Referred to a ecommerce analyst for further evaluation. Ensured patient understood the application process to prevent irritation. Diagnostic results - Labs: - Glucose: 102 mg/dL (Pre-diabetic range) - LDL: 104 mg/dL (Improved from 163 mg/dL last year) Problem List - Pre-diabetes - Hyperlipidemia - Vitamin D deficiency - Facial dermatitis Patient Instructions - Continue simvastatin as prescribed. - Maintain Vitamin D supplement regimen until further lab results. - Monitor blood glucose levels regularly as discussed. - Apply the prescribed topical steroid to affected areas on the face as directed. - Follow up with the ecommerce analyst for further evaluation of the dermatitis. - Next appointment scheduled for March 02 for physical examination. [facility] Medical History Vitamin D deficiency Lipid disorder Surgical History History of tooth extraction Family History Father Asthma Mother HTN (hypertension) Sister Mental health disorder Social History Housing: House Alcohol intake: never Patient Tobacco Use Status: Never used Tobacco e-Cigarette/Vaping Use: Never Used Second Hand Smoke Exposure: No service: No Current occupational status: unemployed Current occupational exposures/hazards: No Cognitive needs: No Hearing needs: No Vision needs: No Female Reproductive History Menstrual Age of Menarche: 14 Questionnaire PHQ-9 Over the last 2 weeks, how often have you been bothered by any of the following problems? 1. Little interest or pleasure in doing things: not at all 2. Feeling down, depressed, or hopeless: not at all 3. Trouble falling or staying asleep, or sleeping too much: not at all 4. Feeling tired or having little energy: not at all 5. Poor appetite or overeating: not at all 6. Feeling bad about yourself - or that you are a failure or have let yourself or your family down: not at all 7. Trouble concentrating on things, such as reading the newspaper or watching television: not at all 8. Moving or speaking so slowly that other people could have noticed. Or the opposite - being so fidgety or restless that you have been moving around a lot more than usual: not at all 9. Thoughts that you would be better off or of hurting yourself in some way: not at all Total score: 0 Depression Screening Interpretation: Negative Depression Screening Done: Yes 56037 - PHQ-9 Billing: Yes Source: Developed by Drs. Maurice Hwang, Lurdes Olivera, Enoch Perry and colleagues, with an educational chico from [employer]. Thrive Questionnaire Date Thrive assessed: 08/25/24 I am a: Patient What is your living situation today?: I have a steady place to live Within the past 12 months, did the food you bought not last and you didn't have the money to get more?: Never true Within the past 12 months, did you worry whether your food would run out before you got money to buy more?: Never true Do you have trouble paying for medicines?: No Do you have trouble getting transportation to medical appointments?: No Do you have trouble paying your heating and electricity bill?: No Do you have trouble taking care of your child, family member or friend?: No Do you have trouble with day-to-day activities such as bathing, preparing meals, shopping, managing finances, etc.?: No Are you currently unemployed and looking for a job?: I choose not to answer this question Are you interested in more education?: Yes Please select the resources that you would like help with: None Currently or been in a relationship where the following occur: I choose not to answer THRIVE Score: 0 AUDIT C Alcohol Use Questionnaire (AUDIT-C) 1. How often do you have a drink containing alcohol?: Never 3. How often do you have six or more drinks on one occasion?: Never Total Score: 0 Score Reviewed/Action Taken: Yes YVONNE-7 AMB Questionnaire YVONNE-7 Date YVONNE - 7 assessed: 08/25/24 Feeling nervous, anxious, or on edge: 0 = Not at all Not being able to stop or control worryin = Not at all Worrying too much about different things: 0 = Not at all Trouble relaxin = Not at all Being so restless that it is hard to sit still: 0 = Not at all Becoming easily annoyed or irritable: 2 = More than half the days Feeling afraid as if something awful might happen: 0 = Not at all Total YVONNE-7 score (0-4 normal; 5-9 mild; 10-14 moderate; 15-21 severe): 2 Source: Developed by Drs. Maurice Hwang, Lurdes Olivera, Enoch Perry and colleagues, with an educational chico from [employer]. YVONNE-7 Assessment Billing YVONNE-7 Assessment Tool: YVONNE-7 Assessment 39877 Review of Systems Const Denies chills and Denies fever(s) ENT Denies epistaxis and Denies nasal discharge Card Denies chest pain Resp Denies chest congestion, Denies cough and Denies hemoptysis GI Denies diarrhea and Denies nausea Skin/Breast Denies rash Neuro Reports no additional complaints Psych Reports no additional complaints Endo Reports no additional complaints Physical exam (Primary Care) Vital Signs: Last Vital Signs Pulse 97 08/25/24 10:54 BP 112/68 08/25/24 10:54 Pulse Ox 98 08/25/24 10:54 Oxygen Delivery Method Room Air 08/25/24 10:54 BMI result Body Mass Index 22.0 Tobacco/Smoking Status: Tobacco use Status Tobacco use date assessed 08/25/24 08/25/24 10:55 Patient Tobacco Use Status Never used Tobacco 08/25/24 10:55 e-Cigarette/Vaping Use Never Used 08/25/24 10:55 PHQ-9: PHQ-9 Score PHQ-9: Total score 0 08/25/24 16:21 Depression Screening Interpretation: Negative Thrive Assessment: Date of Thrive Assessment Date Thrive assessed 08/25/24 08/25/24 10:55 Currently or been in a relationship where the following occur: I choose not to answer Const General: cooperative, comfortable and no acute distress Orientation/consciousness: patient oriented x3 HENMT Head: Yes normocephalic Eyes General: appearance normal, both eyes and all related structures Neck Neck: Yes supple Resp Effort & Inspection: normal respiratory effort, no cough and no stridor Cardio Rhythm: regular rhythm Heart sounds: S1 normal heart sound present and S2 normal heart sound present Skin General skin exam: turgor normal Neuro General: patient oriented x3, tone normal and moves all extremities Extrem Right lower extremity: no edema Left lower extremity: no edema Coding Level of Care Code Est Pt Level 4 (15577) Complex EM visit Add On G2211 Diagnoses Facial rash R21 Lipid disorder E78.9 Vitamin D deficiency E55.9 Prediabetes R73.03 Additional Codes YVONNE-7 Assessment Billing - YVONNE-7 Assessment Tool: YVONNE-7 Assessment 11751 ([id number]) PHQ-9 - 17445 - PHQ-9 Billing: Yes ([id number]) Assessment & Plan Assessment & Plan (1) Facial rash: Code(s): R21 - Rash and other nonspecific skin eruption Category: Medical (2) Lipid disorder: Code(s): E78.9 - Disorder of lipoprotein metabolism, unspecified Category: Medical (3) Vitamin D deficiency: Code(s): E55.9 - Vitamin D deficiency, unspecified Category: Medical (4) Prediabetes: Code(s): R73.03 - Prediabetes Category: Medical Plan Assessment and Plan 49-year-old female with a history of pre-diabetes, hyperlipidemia, and Vitamin D deficiency presenting with concerns regarding facial dermatitis. And physical exam. During the visit, we addressed her current medication adherence and evaluated her dermatologic symptoms that have recently developed on the right cheek, characterized by itching and dryness. She has a history of rising lipid levels, for which she is currently on simvastatin, and a previously noted Vitamin D deficiency. She is also at risk for diabetes, with her last glucose level at 102 mg/dL. Her cholesterol management is noteworthy, showing improvement in LDL levels compared to the previous year. 1. Hyperlipidemia Continue current management with simvastatin due to improved LDL levels. Reinforce compliance with medication and dietary modifications. 2. Vitamin D Deficiency Patient should maintain a daily intake of Vitamin D supplements. Await pending results to adjust treatment if necessary. 3. Pre-Diabetes Continue monitoring fasting glucose levels. Discussed the continued risk of diabetes, and the importance of maintaining a healthy weight and diet. 4. Facial Dermatitis Prescribed a topical steroid to manage symptoms on the right cheek. Referred to a ecommerce analyst for further evaluation. Ensured patient understood the application process to prevent irritation. Diagnostic results - Labs: - Glucose: 102 mg/dL (Pre-diabetic range) - LDL: 104 mg/dL (Improved from 163 mg/dL last year) Problem List - Pre-diabetes - Hyperlipidemia - Vitamin D deficiency - Facial dermatitis Patient Instructions - Continue simvastatin as prescribed. - Maintain Vitamin D supplement regimen until further lab results. - Monitor blood glucose levels regularly as discussed. - Apply the prescribed topical steroid to affected areas on the face as directed. - Follow up with the ecommerce analyst for further evaluation of the dermatitis. - Next appointment scheduled for March 02 for physical examination. Orders: Orders Complete Blood Count Auto Diff 6 Months E55.9 - Vitamin D deficiency, unspecified, E78.9 - Disorder of lipoprotein metabolism, unspecified, R21 - Rash and other nonspecific skin eruption, Z00.01 - Encounter for general adult medical examination with abnormal findings Lipid Panel 6 Months E55.9 - Vitamin D deficiency, unspecified, E78.9 - Disorder of lipoprotein metabolism, unspecified, R21 - Rash and other nonspecific skin eruption, Z00.01 - Encounter for general adult medical examination with abnormal findings Vitamin D 25-OH (D2 and D3) 6 Months E55.9 - Vitamin D deficiency, unspecified, E78.9 - Disorder of lipoprotein metabolism, unspecified, R21 - Rash and other nonspecific skin eruption, Z00.01 - Encounter for general adult medical examination with abnormal findings Vitamin B12 6 Months E55.9 - Vitamin D deficiency, unspecified, E78.9 - Disorder of lipoprotein metabolism, unspecified, R21 - Rash and other nonspecific skin eruption, Z00.01 - Encounter for general adult medical examination with abnormal findings Comprehensive [place]. Panel Fast 6 Months E55.9 - Vitamin D deficiency, unspecified, E78.9 - Disorder of lipoprotein metabolism, unspecified, R21 - Rash and other nonspecific skin eruption, Z00.01 - Encounter for general adult medical examination with abnormal findings TSH reflex Free T4 6 Months E55.9 - Vitamin D deficiency, unspecified, E78.9 - Disorder of lipoprotein metabolism, unspecified, R21 - Rash and other nonspecific skin eruption, Z00.01 - Encounter for general adult medical examination with abnormal findings Referrals Dermatology Referral R21 - Rash and other nonspecific skin eruption Medications: New clobetasol 0.05% 1 appl topical BEDTIME 60 grams 0RF 15 days
== END 2024-08-25 13:28 | disposition home or self-care (01) ==
PROVIDERS: PCP Internal Medicine; Visit Provider Internal Medicine
DX: R21 Rash and other nonspecific skin eruption (principal); E78.9 Disorder of lipoprotein metabolism, unspecified; E55.9 Vitamin D deficiency, unspecified; R73.03 Prediabetes

== ENCOUNTER → 2024-08-25 10:53 | Outpatient (BNVA) | payer OTHER, SELFPAY | PROVIDERS: PCP Internal Medicine; Visit Provider Internal Medicine | DX: R21 Rash and other nonspecific skin eruption (principal); E78.9 Disorder of lipoprotein metabolism, unspecified; E55.9 Vitamin D deficiency, unspecified; R73.03 Prediabetes | CPT/HCPCS: 96127; 99212 ==

== ENCOUNTER 2024-11-04 11:26 | Outpatient (AMB) | payer OTHER, SELFPAY ==
--- NOTE | 2024-11-04 11:27 | MHC.OFFVIS ---
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 Required: No Abstracter Services: Abstracter Present Information Interpreted: clinical only Stunner And Shackler: Stunner And Shackler Present Allergies No Known Drug Allergies Allergy (Unknown, Verified 11/04/24 11:31) unknown Medication List - Last Reconciled 11/04/24 by Galilea Brumfield CNM cholecalciferol (vitamin D3) 50 mcg PO DAILY 90 days clobetasol 0.05% 1 appl topical BEDTIME 15 days cyclobenzaprine 5 mg PO BEDTIME 30 days levonorgestrel (Mirena) intrauterine omeprazole 20 mg PO DAILY 90 days simvastatin 10 mg PO DAILY 90 days vit B complex 100 combo no.2 ER (Balanced B-100 Complex) 1 tab PO .qd 90 days Post menopausal: Yes (2019) HPI 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 She is not getting hot flashes all that much. She is not sexually active anymore for little while. This was the case last year's well.. She used to get very heavy long periods and it caused anemia they would last from 7-10 days sometimes. She is very happy not to have her. And she had considered removing the IUD last year but Ramadan was coming up and she did not want to miss her fast if she had been bleeding and the same thing is true this year as it starts in a couple of weeks. She does not work outside the home but she lives in a household with 9 people and she cares for her [id number] who has had a stroke and is in need of a lot of care. She is watching her cholesterol and we will be getting blood work done for her primary care provider at some point in the near future. Today we talked about when the IUD would need to be removed and how long to keep it in. She thinks she would be happy to remove it is just so long as it was after Ramadan so she did not bleed during Ramadan. She thinks it was put in 2017 but we do not know the date. [facility] Medical History Vitamin D deficiency Lipid disorder Surgical History History of tooth extraction Family History Father Asthma Mother HTN (hypertension) Sister Mental health disorder Social History Housing: House Alcohol intake: never Patient Tobacco Use Status: Never used Tobacco e-Cigarette/Vaping Use: Never Used Second Hand Smoke Exposure: No service: No Current occupational status: unemployed Current occupational exposures/hazards: No Cognitive needs: No Hearing needs: No Vision needs: No Female Reproductive History Menstrual Age of Menarche: 14 control method: progestin IUCD Total pregnancies: 3 Full term: 3 Date of last pap smear: 09/12/22 (neg,2017,neg.) History of abnormal pap smear: No Date of Mammogram: 07/20/24 (negative) Physical Exam Vital Signs: Last Vital Signs BP 116/68 11/04/24 11:31 BMI result Body Mass Index 22.0 Const General: healthy appearing, comfortable, no acute distress, well developed and alert Nutritional Appearance: average body habitus Orientation/consciousness: patient oriented x3 Limitations: no limitations HEENT Head: Yes normocephalic Neck Neck: Yes normal visual inspection Chest Chest palpation & inspection: normal inspection of the chest Breast/axilla inspection: normal inspection of the breasts and normal inspection of the axillae Breast/axilla palpation: normal palpation of the breasts and normal palpation of the axillae Resp Effort & Inspection: normal respiratory effort GI Inspection: Yes normal to inspection, No Abdominal wall edema and No distended Palpation (GI): Soft to palpation and nontender Other: External exam within normal limits vagina is pink and moist cervix pink moist does not appear atrophic and neither does vagina there is a Mirena string extending from cervix. Uterus mobile small midposition nontender adnexa nontender nonenlarged good muscle tone. General: Yes bladder normal to palpation External Female Exam: normal external appearance and normal appearance of the urethra Speculum Exam - Vagina: normal appearance of the vagina, normal palpation and normal vaginal discharge Speculum Exam - Cervix: normal appearance of the cervix, normal palpation and nontender Bimanual exam- vagina & uterus: normal bimanual exam, normal palpation, uterine size normal, bladder normal to palpation, consistency normal, normal palpation, uterine mobility normal, uterine shape normal, No Cervical tenderness present, non-tender and no cervical motion tenderness Bimanual Exam- Adnexa, other: normal adnexae, no masses, normal and No adnexal tenderness Neuro General: patient oriented x3 Results Reviewed Results Reviewed: Name: Mavis Blum Age/Sex: 47/F Attending: Galilea Brumfield CNM : 1975 Submitted by: Galilea Brumfield CNM Copies to: MR #: [id number] Status: DEP REF Collected: 09/12/22 Location: [facility] Received: 09/12/22 Interpretation Satisfactory for evaluation. Negative for intraepithelial lesion or malignancy. HPV mRNA E6/E7: NOT DETECTED This assay detects E6/E7 viral messenger RNA (mRNA) from 14 high-risk HPV types (16, 18, 31, 33, 35, 39, 45, 51, 52, 56, 58, 59, 66, 68) HPV testing performed by [facility], [place], [place]. See reference laboratory portion of the EMR for entire report. Clinical Information LMP: Mirena no menses Previous PAP test: 2017, WNL Material Received ThinPrep-Cervical Electronically Signed By: Ghazal Branham 09/25/22 1038 The Pap Test is a screening procedure with the inherent possibility of both false negative and false positive results. Results should be interpreted in the context of historic and current clinical findings. Reliability of the Pap Test is enhanced by performing the test on a regular repetitive basis. Patient: Mavis Blum Age/Sex: 47/F MR#: [id number] Page 1 of 1 Patient: Mavis Blum MR#: [id number] : 1975 Acct:[id number] Age/Sex: 49 / F ADM Date: 07/31/24 Loc: HO.MAMMO Attending Dr: Tk Springer MD Ordering Physician: Tk Springer MD Results: 1Negative Date of Service: 07/31/24 Follow Up: 1 Year From Original Mammogram Procedure(s): MM tomosynthesis screening BI Accession Number(s): [id number] cc: Tk Springer MD~ EXAMINATION: MM SCREENING DIGITAL BREAST TOMOSYNTHESIS, BILATERAL CLINICAL INFORMATION: Screening. Asymptomatic. COMPARISON: Mammography: Comparison is made with available priors TECHNIQUE: Digital breast mammography with tomosynthesis is performed in both the craniocaudal and mediolateral oblique views along with computer-aided detection (CAD). FINDINGS: The breasts are heterogeneously dense, which may obscure small masses (ACR BI-RADS breast composition Category c). There are no significant masses, abnormal calcifications, or other abnormalities. MM/MM tomosynthesis screening BI IMPRESSION: No mammographic evidence of malignancy. ASSESSMENT: BI-RADS BI-RADS 1 - Negative RECOMMENDATION: Routine annual mammography screening. 1 year F/U This examination should not preclude the clinical evaluation of a suspicious palpable abnormality. This patient's information was entered into a reminder system with a target due date for their next mammogram. Electronically signed by: Allison Oliver DO 08/11/2024 10:57 AM EST Dictated By: Allison Oliver DO Signed By: <Electronically signed by Allison Oliver DO in OV> Assessment & Plan Assessment & Plan (1) Encounter for routine gynecological examination: Code(s): Z01.419 - Encounter for gynecological examination (general) (routine) without abnormal findings Category: Medical (2) Presence of 52 mg levonorgestrel-releasing intrauterine device (IUD): Comment: HIM researched EC W--. Mirena IU S inserted by 06/17/17.; consider removal /replacement June 2025, Code(s): Z97.5 - Presence of (intrauterine) contraceptive device Category: Social Hx (3) Cervical cancer screening: Comment: Previous Pap negative in 2016; Pap done 09/12/2022= neg, neg HPV.; next Pap due 2026. Code(s): Z12.4 - Encounter for screening for malignant neoplasm of cervix Category: Medical (4) Perimenopause: Comment: Consider getting FSH drawn even though Mirena is in to help determine if is in menopause physical features not consistent with menopause yet. 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 She is not getting hot flashes all that much. She is not sexually active anymore for little while. This was the case last year's well.. She used to get very heavy long periods and it caused anemia they would last from 7-10 days sometimes. She is very happy not to have her. And she had considered removing the IUD last year but Ramadan was coming up and she did not want to miss her fast if she had been bleeding and the same thing is true this year as it starts in a couple of weeks. She does not work outside the home but she lives in a household with 9 people and she cares for her [id number] who has had a stroke and is in need of a lot of care. She is watching her cholesterol and we will be getting blood work done for her primary care provider at some point in the near future. Today we talked about when the IUD would need to be removed and how long to keep it in. She thinks she would be happy to remove it is just so long as it was after Ramadan so she did not bleed during Ramadan. She thinks it was put in 2017 but we do not know the date. I offered the patient testing for STIs and infections and she did accept. Pap smear not due until 2026. EC W is now closed to provider's call placed to medical records/HIM and had them research visits with Dr. Bennett from 2017 the note was found documenting insertion of the Mirena IU S on 06/17/2017.. I reviewed that she does not not appear to be completely in menopause yet, and there is no way to really tell as sometimes getting the FSH level done while there is a hormone emitting IUD present may affect the results but I have ordered an FSH level that she can get done at any point this year and for now she could leave the IUD in until June of 2025 and if the FSH level is clearly in the menopausal range she could go ahead and schedule removal at her convenience perhaps in the fall. She did not need anything else she is up-to-date with her mammograms and she is getting her regular checkups with Dr. Springer. RTC 1 year. ------- Timeframe/Date Comment FSH level whenever it is convenient for her Mirena removal if in menopausal range, consider next If not in menopausal range we will need replacement of IUD RTC 1 year, Orders: Orders Follicle Stimulating Hormone Today N95.1 - Menopausal and female climacteric states, Z01.419 - Encounter for gynecological examination (general) (routine) without abnormal findings, Z12.4 - Encounter for screening for malignant neoplasm of cervix, Z97.5 - Presence of (intrauterine) contraceptive device Coding Level of Care Code Est Pt Prev Care 40-64y([id number]) Diagnoses Encounter for routine gynecological examination Z01.419 Presence of 52 mg levonorgestrel-releasing intrauterine device (IUD) Z97.5 Cervical cancer screening Z12.4 Perimenopause N95.1
[2024-11-04 11:31] VITALS: BP 116/68; BMI 22.0
== END 2024-11-04 12:59 | disposition home or self-care (01) ==
PROVIDERS: PCP Internal Medicine; Visit Provider Advanced Practice Midwife
DX: Z01.419 Encounter for gynecological examination (general) (routine) without abnormal findings (principal); N95.1 Menopausal and female climacteric states
CPT/HCPCS: 99396; 99459

== ENCOUNTER 2024-11-04 11:26 | Outpatient (REF) | payer OTHER, SELFPAY ==
[2024-11-05 03:26] LABS: CT PCR NOT DETECTED (Not Detect.); NG PCR NOT DETECTED (Not Detect.)
[2024-11-05 13:56] LABS: Bacterial Vaginosis PCR NEGATIVE (Negative); Candida Group PCR NOT DETECTED (Not Detect); Candida glab krusei PCR NOT DETECTED (Not Detect); Trichomonas vaginalis PCR NOT DETECTED (Not Detect)
== END 2024-11-04 11:27 | disposition home or self-care (01) ==
LOC: HO.LAB 11:26
PROVIDERS: PCP Internal Medicine; Visit Provider Advanced Practice Midwife
DX: Z01.419 Encounter for gynecological examination (general) (routine) without abnormal findings (principal); N89.8 Other specified noninflammatory disorders of vagina; Z97.5 Presence of (intrauterine) contraceptive device; N95.1 Menopausal and female climacteric states
CPT/HCPCS: 81515; 87491; 87591; 99396; 99459

== ENCOUNTER 2025-03-02 12:31 | Outpatient (AMB) | payer OTHER, SELFPAY ==
--- NOTE | 2025-03-02 12:34 | A.OFFPC_ITS ---
Vital Signs 03/02/25 12:35 Height 5 ft 4 in Weight 125 lb 6 oz BMI 21.5 BP 114/76 Blood Pressure Location Rt brachial Position Sitting Pulse 81 Pulse Source Pulse Oximeter Temp 98.7 F Temp Source Oral Pulse Oximetry (%) 98 Oxygen Delivery Method Room Air Intake Visit Reasons: PE PHQ-9 needed. Allergies No Known Drug Allergies Allergy (Unknown, Verified 03/02/25 12:35) unknown Medication List - Last Reconciled 03/02/25 by Tk Springer MD cholecalciferol (vitamin D3) 50 mcg PO DAILY 90 days levonorgestrel (Mirena) intrauterine omeprazole 20 mg PO DAILY 90 days simvastatin 10 mg PO DAILY 90 days vit B complex 100 combo no.2 ER (Balanced B-100 Complex) 1 tab PO .qd 90 days Tobacco use date assessed: 03/02/25 Dental Screening Dental Screen Date: 03/02/25 Did you have a dental visit in the last 12 months?: No Did you have a dental problem in the last 6 months where you did not have access to dental care?: No Was dental information given to patient?: Patient has dentist HPI PE PHQ-9 needed. HPI Details Physical exam appointment patient is a 49-year-old female Labs were supposed to be done before this visit but patient did not Medication list reviewed Taking omeprazole 20 mg for GERD Simvastatin 10 mg for lipid disorder And vitamin-D supplement BMI within normal limit - She has experienced foot pain due to a traumatic incident where she dropped a can of chickpeas on her foot. The pain was initially a blue bruise, but did not cause severe pain. - The patient reports shoulder pain, whi ch is suspected to be due to overuse. There is a history of arthritis in one shoulder, now suspected in both due to occurrence of similar pain. - Hyperlipidemia was noted with an LDL o f 104 during previous metabolic profiling. Medical History: - Vitamin D deficiency - Hyperlipidemia - History of trauma-induced foot pain - Shoulder arthritis and suspected overu se injury Health Maintenance - Up-to-date mammogram - Up-to-date OBGYN checkup - Liver enzymes stable and kidney functi ons intact - Fasting glucose noted to be 102 - Vitamin D measured at 28 Diagnostic results - Metabolic profile within normal limits - CBC normal, no anemia - Fasting sugar 102 - LDL 104 - Liver enzymes stable - Kidney functions intact Patient Instructions - Continue taking Vitamin D supplements. - Ensure blood tests are updated as requ ired. - Get a Cologuard test done. - Take omeprazole and avoid spicy foods to manage gastrointestinal symptoms. - Consider an ultrasound to investigate shoulder pain further. - Tetanus vaccine is due; remain mindful of the necessity if injuries occur. patient declined T dap today Review of Systems - General: No fever no chills - Neurological: No headaches no dizzin ess - Ear nose throat: No sore throat no hearing difficulty no ear pain - Cardiovascular: No syncope, no chest pain, no palpitations - Gastrointestinal: No nausea vomiting or diarrhea - Endocrine: No polyuria polydipsia no heat intolerance - Genitourinary: No dysuria - Skin: No new complaints Physical Exam General: Cooperative, healthy appearing, comfortable, no acute distress Orientation: Patient oriented x3 Head: Normal to inspection Ears: Within normal limit visually Nose: Normal external nose present Face and sinus: Normal facial exam Eyes: Appearance normal, extraocular movement intact pupils reactive Neck: Normal visual inspection and supple Respiratory: Normal respiratory effort and able to speak in complete sentences. Clear to auscultation, no stridor Cardiovascular: S1 and S2 RRR GI: Normal to inspection. Soft to palpation and nontender Skin: Turgor normal, no acute findings Neuro: Patient oriented x3, motor sensory intact, balance intact, tandem pass Extremities: Normal to inspection, ROM intact, pain both shoulders with extension, pain left foot between big toe and second toe PFSH Medical History Vitamin D deficiency Lipid disorder Surgical History History of tooth extraction Family History Father Asthma Mother HTN (hypertension) Sister Mental health disorder Social History Housing: House Alcohol intake: never Patient Tobacco Use Status: Never used Tobacco e-Cigarette/Vaping Use: Never Used Second Hand Smoke Exposure: No service: No Current occupational status: unemployed Current occupational exposures/hazards: No Cognitive needs: No Hearing needs: No Vision needs: No Female Reproductive History Menstrual Age of Menarche: 14 Questionnaire PHQ-9 Over the last 2 weeks, how often have you been bothered by any of the following problems? 1. Little interest or pleasure in doing things: not at all 2. Feeling down, depressed, or hopeless: not at all 3. Trouble falling or staying asleep, or sleeping too much: not at all 4. Feeling tired or having little energy: not at all 5. Poor appetite or overeating: not at all 6. Feeling bad about yourself - or that you are a failure or have let yourself or your family down: not at all 7. Trouble concentrating on things, such as reading the newspaper or watching television: not at all 8. Moving or speaking so slowly that other people could have noticed. Or the opposite - being so fidgety or restless that you have been moving around a lot more than usual: not at all 9. Thoughts that you would be better off or of hurting yourself in some way: not at all Total score: 0 Source: Developed by Drs. Maurice Hwang, Lurdes Olivera, Enoch Perry and colleagues, with an educational chico from [employer]. Thrive Questionnaire Date Thrive assessed: 08/23/24 I am a: Patient What is your living situation today?: I have a steady place to live Within the past 12 months, did the food you bought not last and you didn't have the money to get more?: Never true Within the past 12 months, did you worry whether your food would run out before you got money to buy more?: Never true Do you have trouble paying for medicines?: No Do you have trouble getting transportation to medical appointments?: No Do you have trouble paying your heating and electricity bill?: No Do you have trouble taking care of your child, family member or friend?: No Do you have trouble with day-to-day activities such as bathing, preparing meals, shopping, managing finances, etc.?: No Are you currently unemployed and looking for a job?: No Are you interested in more education?: Yes Please select the resources that you would like help with: None Currently or been in a relationship where the following occur: No concerns reported THRIVE Score: 0 AUDIT C Alcohol Use Questionnaire (AUDIT-C) 1. How often do you have a drink containing alcohol?: Never Total Score: 0 YVONNE-7 AMB Questionnaire YVONNE-7 Date YVONNE - 7 assessed: 08/25/24 Feeling nervous, anxious, or on edge: 0 = Not at all Not being able to stop or control worryin = Not at all Worrying too much about different things: 0 = Not at all Trouble relaxin = Not at all Being so restless that it is hard to sit still: 0 = Not at all Becoming easily annoyed or irritable: 0 = Not at all Feeling afraid as if something awful might happen: 0 = Not at all Total YVONNE-7 score (0-4 normal; 5-9 mild; 10-14 moderate; 15-21 severe): 0 Source: Developed by Drs. Maurice Hwang, Lurdes Olivera, Enoch Perry and colleagues, with an educational chico from [employer]. Review of Systems Const Denies chills, Denies fever(s) and Denies headache(s) Eyes Denies blurry vision ENT Denies headache(s), Denies nasal discharge, Denies nasal obstruction, Denies odynophagia and Denies sinus pain Card Denies chest pain at rest and Denies chest pain with activity Resp Denies cough and Denies hemoptysis GI Denies diarrhea, Denies odynophagia, Denies vomiting and Denies hematemesis Reports as per HPI Musc Denies abnormal gait Skin/Breast Reports as per HPI Neuro Denies Neuro-related abnormal movements, Denies Abnormal speech present, Denies abnormal gait, Denies headache(s) and Denies Sensory deficit (Neuro) Psych Denies mood swings and Denies paranoia Endo Reports as per HPI Danny/Lymph Reports as per HPI Aller/Immun Reports as per HPI Physical exam (Primary Care) Vital Signs: Last Vital Signs Temp 98.7 F 03/02/25 12:35 Pulse 81 03/02/25 12:35 BP 114/76 03/02/25 12:35 Pulse Ox 98 03/02/25 12:35 Oxygen Delivery Method Room Air 03/02/25 12:35 BMI result Body Mass Index 21.5 Tobacco/Smoking Status: Tobacco use Status Tobacco use date assessed 03/02/25 03/02/25 12:38 Patient Tobacco Use Status Never used Tobacco 03/02/25 12:38 e-Cigarette/Vaping Use Never Used 03/02/25 12:38 PHQ-9: PHQ-9 Score PHQ-9: Total score 0 03/02/25 12:38 Thrive Assessment: Date of Thrive Assessment Date Thrive assessed 08/23/24 03/02/25 12:38 Currently or been in a relationship where the following occur: No concerns reported Const General: cooperative, comfortable and no acute distress Orientation/consciousness: patient oriented x3 HENMT Head: Yes normocephalic and Yes atraumatic Eyes General: appearance normal, both eyes and all related structures Pupils: Equal, round and reactive pupils present EOM: EOMs intact bilaterally Neck Neck: Yes supple and No lymphadenopathy Thyroid: Thyroid normal Lymphatic: no lymphadenopathy noted Chest Breast/axilla palpation: normal palpation of the breasts Resp Effort & Inspection: normal respiratory effort and able to speak in complete sentences Auscultation: clear to auscultation bilaterally Cardio Heart sounds: S1 normal heart sound present and S2 normal heart sound present GI Palpation (GI): Soft to palpation and nontender Auscultation: normal bowel sounds General: Yes no CVA tenderness Back/Spine/Pelvis Back: no CVA tenderness Skin General skin exam: elasticity normal and turgor normal Neuro General: patient oriented x3 and gait normal Cranial nerves: Yes Equal, round and reactive pupils present Speech: No Abnormal speech present Sensory Exam: No Sensory deficit (Neuro) Coordination: tandem gait normal and Romberg test negative Extrem General: Yes normal exam except as noted and No edema Coding Level of Care Code Est Pt Level 3 (75433) Est Pt Prev Care 40-64y(39971) Diagnoses Encounter for general adult medical examination with abnormal findings Z00.01 Foot pain, left M79.672 Chronic pain of both shoulders M25.511; M25.512; G89.29 Chronicity: chronic Lipid disorder E78.9 Vitamin D deficiency E55.9 Prediabetes R73.03 Assessment & Plan Assessment & Plan (1) Encounter for general adult medical examination with abnormal findings: Code(s): Z00.01 - Encounter for general adult medical examination with abnormal findings Category: Medical (2) Foot pain, left: Code(s): M79.672 - Pain in left foot Category: Medical (3) Shoulder pain, bilateral: Code(s): M25.511 - Pain in right shoulder; M25.512 - Pain in left shoulder Category: Medical Qualifiers: Chronicity: chronic Qualified Code(s): M25.511 - Pain in right shoulder; M25.512 - Pain in left shoulder; G89.29 - Other chronic pain (4) Lipid disorder: Code(s): E78.9 - Disorder of lipoprotein metabolism, unspecified Category: Medical (5) Vitamin D deficiency: Code(s): E55.9 - Vitamin D deficiency, unspecified Category: Medical (6) Prediabetes: Code(s): R73.03 - Prediabetes Category: Medical Plan Physical exam appointment patient is a 49-year-old female Labs were supposed to be done before this visit but patient did not Medication list reviewed Taking omeprazole 20 mg for GERD Simvastatin 10 mg for lipid disorder And vitamin-D supplement BMI within normal limit - She has experienced foot pain due to a traumatic incident where she dropped a can of chickpeas on her foot. The pain was initially a blue bruise, but did not cause severe pain. - The patient reports shoulder pain, which is suspected to be due to overuse. There is a history of arthritis in one shoulder, now suspected in both due to occurrence of similar pain. - Hyperlipidemia was noted with an LDL of 104 during previous metabolic profiling. Medical History: - Vitamin D deficiency - Hyperlipidemia - History of trauma-induced foot pain - Shoulder arthritis and suspected overuse injury - prediabetes Health Maintenance - Up-to-date mammogram - Up-to-date OBGYN checkup - Liver enzymes stable and kidney functions intact - Fasting glucose noted to be 102 - Vitamin D measured at 28 Diagnostic results - Metabolic profile within normal limits - CBC normal, no anemia - Fasting sugar 102 - LDL 104 - Liver enzymes stable - Kidney functions intact Patient Instructions - Continue taking Vitamin D supplements. - Ensure blood tests are updated as required. - Get a Cologuard test done. - Take omeprazole and avoid spicy foods to manage gastrointestinal symptoms. - Consider an ultrasound to investigate shoulder pain further. - Tetanus vaccine is due; remain mindful of the necessity if injuries occur. patient declined T dap today Orders: Orders PT Evaluation and Treatment Today M25.511 - Pain in right shoulder, M25.512 - Pain in left shoulder XR foot LT 2V Today M79.672 - Pain in left foot Referrals Cologuard Test Z12.11 - Encounter for screening for malignant neoplasm of colon, Z12.12 - Encounter for screening for malignant neoplasm of rectum Medications: Refilled omeprazole 20 mg PO DAILY 90 caps 1RF 90 days simvastatin 10 mg PO DAILY 90 tabs 1RF 90 days
[2025-03-02 12:35] VITALS: BP 114/76; PULSE 81; TEMP 37.1; O2SAT 98; BMI 21.5
== END 2025-03-02 13:04 | disposition home or self-care (01) ==
LOC: HO.HMCC 12:32
PROVIDERS: PCP Internal Medicine; Visit Provider Internal Medicine
DX: Z00.01 Encounter for general adult medical examination with abnormal findings (principal); M79.672 Pain in left foot; M25.511 Pain in right shoulder; M25.512 Pain in left shoulder; G89.29 Other chronic pain; E78.9 Disorder of lipoprotein metabolism, unspecified; E55.9 Vitamin D deficiency, unspecified; R73.03 Prediabetes

== ENCOUNTER → 2025-03-02 12:31 | Outpatient (BNVA) | payer OTHER, SELFPAY | PROVIDERS: PCP Internal Medicine; Visit Provider Internal Medicine | DX: Z00.01 Encounter for general adult medical examination with abnormal findings (principal); K21.9 Gastro-esophageal reflux disease without esophagitis; E78.5 Hyperlipidemia, unspecified; M79.672 Pain in left foot; M25.511 Pain in right shoulder; M25.512 Pain in left shoulder; G89.29 Other chronic pain; E78.9 Disorder of lipoprotein metabolism, unspecified; E55.9 Vitamin D deficiency, unspecified; R73.03 Prediabetes | CPT/HCPCS: 99212; 99396 ==

== ENCOUNTER 2025-03-08 08:54 | Outpatient (REF) | payer OTHER, SELFPAY ==
--- NOTE | ~2025-03-08 | XR_ITS ---
EXAMINATION: XR FOOT 1-2 VIEWS LEFT HISTORY: M79.672 - Pain in left foot COMPARISON: There are no prior studies available for comparison. FINDINGS: Three views of the left foot are submitted. Osseous mineralization is normal. There is a corticated density at the base of the proximal phalanx of the great toe which may be the result of old trauma. There is no acute fracture or dislocation. There is moderate osteoarthritis of the 1st MTP joint, with joint space narrowing and osteophyte formation. The remaining joint spaces are maintained. The soft tissues are unremarkable. XR/XR foot LT 2V IMPRESSION: Moderate osteoarthritis of the 1st MTP joint. Electronically signed by: Maurice Vu MD 03/08/2025 10:00 AM EDT
[2025-03-08 12:51] LABS: MANUAL DIFF FLAG NO
[2025-03-08 13:09] LABS: Basophils Absolute Auto 0.1 X10*3/uL (0.0-0.2); Basophils Percent Auto 1.3 % (0-2); Eosinophils Absolute Auto 0.1 X10*3/uL (0.0-0.4); Eosinophils Percent Auto 1.9 % (0-4); Hematocrit 42.6 % (37.0-47.0); Hemoglobin 14.1 g/dl (12.0-16.0); Imm Gran Abs Auto 0.01 X10*3/uL (0.00-0.03); Imm Gran Pct Auto 0.2 % (0.0-0.4); Lymphocytes Absolute Auto 2.2 X10*3/uL (1.2-4.9); Lymphocytes Percent Auto 41.4 % (20-40); Mean Corpuscular HGB Conc 33.1 g/dl (31.0-35.0); Mean Corpuscular Hemoglobin 27.1 pg (27.0-33.0); Mean Corpuscular Volume 81.8 fL (80.0-98.0); Mean Platelet Volume 11.8 fL (9.4-12.3); Monocytes Absolute Auto 0.4 X10*3/uL (0.1-1.2); Monocytes Percent Auto 7.1 % (2-11); Neutrophils Absolute Auto 2.5 x10*3/uL (2.0-8.3); Neutrophils Percent Auto 48.1 % (45-73); Platelet Count 171 X10*3/uL (160-400); Red Blood Count 5.21 X10*6/uL (4.20-5.50); Red Cell Distribution Width 13.1 % (11.0-16.0); White Blood Count 5.2 X10*3/uL (4.8-10.8)
[2025-03-08 13:39] LABS: Alanine Aminotransferase 48 U/L (0-31); Albumin Level 4.2 g/dL (3.5-5.0); Alkaline Phosphatase 79 U/L (39-117); Anion Gap 11 (12-20); Aspartate Amino Transferase 37 U/L (5-31); Bilirubin Total 0.7 mg/dL (0.0-1.0); Blood Urea Nitrogen 15 mg/dL (9-16); Calcium 9.2 mg/dL (8.4-10.2); Carbon Dioxide 25 mmol/L (22-29); Chloride 109 mmol/L (96-108); Cholesterol 186 mg/dL (<200); Estimated Glomerular Filt Rate > 60; Glucose Fasting 94 mg/dL (60-99); HDL Cholesterol 67 mg/dL (>40); LDL Cholesterol Calculated 106 mg/dL (<100); Sodium 141 mmol/L (135-145); Total Protein 7.1 g/dL (6.5-8.0); Triglycerides 66 mg/dL (<150)
[2025-03-08 13:44] LABS: Vitamin B12 304 pg/mL (200-900)
[2025-03-13 15:48] LABS: Vitamin D 25-OH, D2 <4 ng/mL; Vitamin D 25-OH, D3 30 ng/mL; Vitamin D 25-OH, Total 30 ng/mL (30-100)
== END 2025-03-08 08:55 | disposition home or self-care (01) ==
LOC: HO.HMGCX 08:54
PROVIDERS: PCP Internal Medicine; Visit Provider Internal Medicine
DX: M79.672 Pain in left foot (principal); R21 Rash and other nonspecific skin eruption; E55.9 Vitamin D deficiency, unspecified; E78.9 Disorder of lipoprotein metabolism, unspecified; Z00.01 Encounter for general adult medical examination with abnormal findings
CPT/HCPCS: 36415; 73620; 80053; 80061; 82306; 82607; 84443; 85025

== ENCOUNTER → 2025-03-08 09:43 | Outpatient (BNV) | payer OTHER, SELFPAY | PROVIDERS: PCP Internal Medicine; Visit Provider Radiology Diagnostic Radiology | DX: M19.072 Primary osteoarthritis, left ankle and foot (principal) | CPT/HCPCS: 73620 ==

== ENCOUNTER 2025-04-29 08:00 | Outpatient (RCR) | payer OTHER, SELFPAY ==
--- NOTE | 2025-04-05 09:45 | MHC.PT.EP ---
[facility] [place] Office [place] Office [place] Office [address] [phone] F: [phone] F: [phone] F: [phone] F: [phone] Physical Therapy Plan of Care Date of Evaluation: 04/05/25 Date of Surgery: Diagnosis: This is a 49 yo female presenting to skilled PT with a script for B shoulder pain. Assessment: This is a 49 yo female presenting to skilled PT with a script for B shoulder pain. Patient reporting on and off shoulder pain for about the last 6 months (L >R). She reports that her pain is arthritis related. Pain increases with lifting, reaching (described as tight). She does endorse stiffness that is mild at rest. Pain is located B UT's. She had PT for this in the past and it was helpful (3-4 years ago). Denies neck pain, GUILLEN's or radiating arm symptoms. Assessment reveals pain that ranges from up to a 4/10 at the worst. Patient demos decreased B shoulder and cervical ROM (lateral flexion), strength of B shoulder's and scapular stabilizers, TTP at pec, UT and impaired posture with forward head and rounded shoulders. Based on functional limitations, impaired QOL and pain tolerance patient is a good candidate for skilled PT 2x/wk for 4wks. Frequency and Duration: The patient will be seen 2x/wk for 4wks Short Term Goals: (In 2 weeks) Demo I with HEP Improve shoulder AROM by at least 10 degs Demo proper scapular recruitment with appropriate shoulder strengthening exercises Fdc Goals: (in 4 wks) Improve shoulder nonpainful AROM to almost near equal B Demo at least 1 grade improvement in MMT for shoulder Improve SPADI by at least 10 points Improve overall functional QOL by at least 50% Treatment Plan: Modalities to reduce pain, spasms and effusion. Manual therapy to restore motion and function. Therapeutic exercise to improve strength and flexibility. Neuromuscular re-education for posture and balance. Therapeutic activities to return to functional activities of daily living. Electronically signed by: Felicita Call PT Please sign and return to therapist. Thank you for your referral.
--- NOTE | 2025-05-27 13:10 | MHC.PT.DC ---
[facility] [place] Office [place] Office [place] Office [address] Mike Gan [address] [phone] F: [phone] F: [phone] F: [phone] F: [phone] Physical Therapy Discharge Report Diagnosis: This is a 49 yo female presenting to skilled PT with a script for B shoulder pain. Date of Surgery: Date of Evaluation: 04/05/25 Date of Discharge: 05/27/25 Treatments to Date: 7 Cancellations to Date: 0 No Shows to Date: 0 Discharge Status: Improved Function Independent with HEP Patient Elected to Stop Recommend MD Follow-up Discharge Summary: 04/26: Continued to talk about swelling at the upper breast tissue, educated her that she may want to follow up with MD as it has been a while for further testing on this. Continued manual and light ther-ex, patient still notably weak throughout postural stabilizers but demos good ROM. Patient requesting DC to HEP at this time. Patient came to 7 sessions of PT, has an HEP to continue on her own and was educated on proper referrals as needed. Electronically signed by: Felicita Call PT Please sign and return to therapist. Thank you for your referral.
== END 2025-05-27 13:10 | disposition home or self-care (01) ==
LOC: HO.PTCHIC 08:00
PROVIDERS: PCP Internal Medicine; Visit Provider Internal Medicine
DX: M25.511 Pain in right shoulder (principal); M25.512 Pain in left shoulder
CPT/HCPCS: 97110; 97140; 97162

== ENCOUNTER 2025-08-04 12:20 | Outpatient (REF) | payer OTHER, SELFPAY | END 2025-08-04 12:21 | disposition home or self-care (01) | LOC: HO.MAMMO 12:20 | PROVIDERS: PCP Internal Medicine; Visit Provider Internal Medicine | DX: Z12.31 Encounter for screening mammogram for malignant neoplasm of breast (principal) | CPT/HCPCS: 77063; 77067 ==

== ENCOUNTER → 2025-08-04 12:30 | Outpatient (BNV) | payer OTHER, SELFPAY | PROVIDERS: PCP Internal Medicine; Visit Provider Radiology Body Imaging | DX: Z12.31 Encounter for screening mammogram for malignant neoplasm of breast (principal) | CPT/HCPCS: 77063; 77067 ==

== ENCOUNTER 2025-09-02 12:00 | Outpatient (REF) | payer SELFPAY ==
[2025-09-02 15:31] LABS: Alanine Aminotransferase 35 U/L (0-31); Albumin Level 4.1 g/dL (3.5-5.0); Alkaline Phosphatase 80 U/L (39-117); Anion Gap 9 (12-20); Aspartate Amino Transferase 25 U/L (5-31); Blood Urea Nitrogen 17 mg/dL (9-16); Calcium 8.8 mg/dL (8.4-10.2); Carbon Dioxide 28 mmol/L (22-29); Chloride 108 mmol/L (96-108); Cholesterol 229 mg/dL (<200); Estimated Glomerular Filt Rate > 60; HDL Cholesterol 63 mg/dL (>40); Potassium 4.2 mmol/L (3.3-5.1); Sodium 141 mmol/L (135-145); Total Protein 7.0 g/dL (6.5-8.0); Triglycerides 108 mg/dL (<150)
[2025-09-06 06:13] LABS: Vitamin D 25-OH, D2 <4 ng/mL; Vitamin D 25-OH, D3 26 ng/mL; Vitamin D 25-OH, Total 26 ng/mL (30-100)
== END 2025-09-02 12:01 | disposition home or self-care (01) ==
LOC: HO.HMGCLDS 12:00
PROVIDERS: PCP Internal Medicine; Visit Provider Internal Medicine
DX: R73.03 Prediabetes (principal); E78.9 Disorder of lipoprotein metabolism, unspecified; E55.9 Vitamin D deficiency, unspecified
CPT/HCPCS: 36415; 80053; 80061; 82306